=== PATIENT | male | born 1995 | race Caucasian/White ===

== ENCOUNTER 2020-05-01 02:42 | Emergency (ER) | payer BC, SELFPAY ==
--- NOTE | ~2020-05-01 | CT_ITS ---
EXAMINATION: CT brain wo con EXAM DATE: 05/01/2020 03:57 INDICATION: Headache. TECHNIQUE: Spiral CT of the head was performed without contrast. Axial, coronal and sagittal images were reviewed. The dose-length product (DLP) for this examination was 605.33 mGy-cm. The exposure w as tailored according to patient size, and iterative reconstruction (ASIR) was used as additional dos e reduction technique. Comparison is made to prior examination from 08/19/2004. FINDINGS: There is small old region of old right frontal lobe encephalomalacia from prior infarction or trauma. There is no acute intraparenchymal hemorrhage. No evidence of intraparenchymal brain mass lesion. No evidence of acute infarction. There is no mass effect or midline shift. The ventricles are normal in size. There are no extra-axial collections. There are no acute calvarial fractures. The orbits are unremarkable. Soft tissue is unremarkable. The visualized sinuses and mastoid air ce lls are well aerated. IMPRESSION: 1. No acute intracranial findings. 2. Small old right frontal lobe encephalomalacia. Reviewed, dictated and finalized at location A.
[2020-05-01 02:43] VITALS: BP 102/67; PULSE 62; RESP 16; TEMP 36.5; O2SAT 100
[2020-05-01 03:43] VITALS: BP 142/93; PULSE 108; RESP 16; O2SAT 100
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
[2020-05-01 05:10] VITALS: BP 98/62; PULSE 68; RESP 16; O2SAT 100
== END 2020-05-01 05:12 | disposition home or self-care (01) ==
PROVIDERS: Emergency Provider General Practice
DX: S09.90XA Unspecified injury of head, initial encounter (principal); F17.290 Nicotine dependence, other tobacco product, uncomplicated; W01.198A Fall on same level from slipping, tripping and stumbling with subsequent striking against other object, initial encounter
CPT/HCPCS: 70450; 99284

== ENCOUNTER 2022-05-31 15:32 | Emergency (ER) | payer BC, SELFPAY ==
[2022-05-31 16:00] VITALS: BP 118/63; PULSE 81; RESP 18; TEMP 36.4; O2SAT 100
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
== END 2022-05-31 16:43 | disposition home or self-care (01) ==
PROVIDERS: Emergency Provider Nurse Practitioner Family
DX: N39.0 Urinary tract infection, site not specified (principal); F17.290 Nicotine dependence, other tobacco product, uncomplicated
CPT/HCPCS: 81003; 87086; 99213; G0463